=== PATIENT | female | born 1970 | race Two or more races ===

== ENCOUNTER 2016-10-11 11:06 | Emergency (ER) | payer OTHER ==
[2016-10-11 14:00] VITALS: BP 139/93
--- NOTE | 2016-10-11 14:18 | RAD ---
INDICATION: Progressive LEFT mid back and flank pain. Pain on bending. COMPARISON: May 09, 2004 lumbar spine radiographs. TECHNIQUE: Multidetector CT images were obtained from the lung bases to the ischial tuberosities. Evaluation of the viscera is limited without IV contrast. Multiplanar reformation. REPORT: Unremarkable visualized inferior thorax. The unenhanced liver, gallbladder, pancreas, and spleen are unremarkable. Negative for CT abnormality of the unopacified upper GI, small bowel, appendix visualized along the RIGHT pelvic sidewall, or colon. Physiologic small volume of free fluid in the cul-de-sac. Negative for free air or hernias. Normal adrenal glands. The RIGHT kidney is mildly smaller than the LEFT measuring 9.7 cm in length compared with 10.8 cm for the LEFT. No conspicuous stones, hydronephrosis, or focal renal lesions. Negative for perinephric stranding. Negative for abnormality along the course of the nondilated ureters. Unremarkable partially distended urinary bladder. Unremarkable anteverted rightward deviated uterus and bilateral adnexal regions. Negative for lymphadenopathy. Normal diameter abdominal aorta and iliac arteries. Physiologic distention of the IVC. Negative for suspicious focal osseous lesions or fractures. Normal lumbar sacral spine alignment. No CT evidence for significant degenerative spondylosis or spinal stenosis. IMPRESSION: No acute abdominal pelvic pathologic process evident.
--- NOTE | 2016-10-11 14:31 | UC ---
Santhosh Mcfarlane Salem, scribed for Tracy Anderson MD on 10/11/16 at 1302 . Back Pain HPI - HPI Summary HPI Summary: Patient is a 45 y/o F who presents to the with pain in left flank pain since last night. She states that pain is aggravated with bending, siting, and with applied pressure. Pt denies any recent injuries or abd pain, nausea, right flank , and urinary symptoms (such as frequency or discoloration). She also denies any hx of similar pain. + hx autoimmune d/o. She states that she had a spinal tap done 2 weeks ago with blood patch. Pt has been tapering off of Prednisone since April 2015. She also reports taking Methotrexate (weekly), and supplements including Gabapentin, Magnesium, curcurmen, Vit B2. Pt was not able to see PCP (dr Anton) today, but was sent here from her PCPs office. Most recent PO intake around 0945 today. Denies hx of pancreatitis. LNMP was 2 weeks ago. Patients medication reviewed this visit. She reported to RN that she had a spinal tap(out of town) done 2 weeks ago with blood patch. - History of Current Complaint Chief Complaint: UCBackPain Stated Complaint: PAIN UNDER RIB AREA Time Seen by Provider: 10/11/16 13:04 Hx Obtained From: Patient Hx Last Menstrual Period: 09/27/16 Onset/Duration: Gradual Onset, Lasting Days, Still Present Timing: Constant Severity Initially: Moderate Severity Currently: Moderate Pain Intensity: 8 Pain Scale Used: 0-10 Numeric Back Pain: Is Discrete @ - Left flank. Character: Sharp Aggravating: Bending - Sitting. Alleviating: Position - Standing. Associated Signs And Symptoms: Positive: Flank Pain - Left. - Allergies/Home Medications Allergies/Adverse Reactions: Allergies Allergy/AdvReac Type Severity Reaction Status Date / Time No Known Allergies Allergy Verified 10/11/16 11:40 Home Medications: Home Medications Gabapentin CAP(*) [Neurontin 100 mg CAP(*)] 200 mg PO BEDTIME 10/11/16 [History Confirmed 10/11/16] PMH/Surg Hx/FS Hx/Imm Hx Previously Healthy: Yes - Surgical History Surgical History: Yes Surgery Procedure, Year, and Place: BENIGN LUMP (FATTY TUMOR) REMOVAL FROM BACK; - Family History Known Family History: Negative: Cardiac Disease, Hypertension, Diabetes - Social History Alcohol Use: None Substance Use Type: None Smoking Status (MU): Former Smoker Type: Cigarettes Have You Smoked in the Last Year: No - Immunization History Most Recent Influenza Vaccination: 2016 Most Recent Tetanus Shot: approx 5 years ago Most Recent Pneumonia Vaccination: never Review of Systems Constitutional: Negative Skin: Negative Eyes: Negative ENT: Negative Respiratory: Negative Cardiovascular: Negative Musculoskeletal: Other: - See HPI. All Other Systems Reviewed And Are Negative: Yes Physical Exam Triage Information Reviewed: Yes Appearance: Well-Nourished Vital Signs: Initial Vital Signs Temp 98.7 F 10/11/16 11:41 Pulse 80 10/11/16 11:41 Resp 16 10/11/16 11:41 BP 129/89 10/11/16 11:41 Pulse Ox 100 10/11/16 11:41 Vital Signs Reviewed: Yes Eye Exam: Normal ENT Exam: Normal Neck exam: Normal Neck: Positive: Supple Respiratory Exam: Normal - no dyspnea, no tachypnea, normal respiratory rate Respiratory: Positive: Chest non-tender, Lungs clear, Normal breath sounds, No respiratory distress, No accessory muscle use Cardiovascular Exam: Normal - Heart rate regular, good general skin color, good capillary refil Cardiovascular: Positive: RRR, No Murmur, Pulses Normal, Brisk Capillary Refill Abdominal Exam: Normal Abdomen Description: Positive: Nontender, No Organomegaly, Soft, CVA Tenderness (L) Bowel Sounds: Positive: Present Musculoskeletal Exam: Normal Musculoskeletal: Positive: Strength Intact Neurological Exam: Normal - nonfocal, grossly intact Psychological Exam: Normal - conversing easily and appropriately Skin Exam: Normal - no visible or reported rash Diagnostics - Laboratory Diagnostic Studies Completed/Ordered: POC Ur test: negative. CT of ABD/PELVIS: IMPRESSION: No acute abdominal pelvic pathologic process evident. Back Pain Course/Dx - Course Course Of Treatment: Declines analgesics. Prefers standing up to sitting down ( pain). Reviewed urine dip w/ pt. CT a/p w/o cont ordered. 14:30 s/o Dr. Escobedo. - Differential Dx/Diagnosis Provider Diagnoses: Acute left flank pain Discharge - Discharge Plan Condition: Stable Disposition: HOME Referrals: Papito Anton MD [Primary Care Provider] - Additional Instructions: Please follow up with your primary care provider in 1-2 weeks. Seek medical attention for worse or new problems in the meantime. The documentation as recorded by the Santhosh ferrer Salem accurately reflects the service I personally performed and the decisions made by me, Tracy Anderson MD.
== END 2016-10-11 15:10 | disposition home or self-care (01) ==
LOC: UCEAST 11:06
DX: R10.9 Unspecified abdominal pain (principal); Z87.891 Personal history of nicotine dependence
CPT/HCPCS: 74176; 81003; 84702; 99212; G0463

== ENCOUNTER 2016-11-13 09:50 | Emergency (ER) | payer OTHER ==
[2016-11-13 10:03] VITALS: BP 135/89
[2016-11-13] MEDS ORDERED: Ketorolac INJ* 30 MG/ML 1 ML VIAL IV ONE (10:47)
--- NOTE | 2016-11-13 11:36 | RAD ---
INDICATION: Excruciating neck pain with radiation to the LEFT (C8) shoulder and down the mid back. Decreased range of motion. COMPARISON: June 22, 2015 MRI. TECHNIQUE: Multidetector CT images foramen magnum to lung apices without contrast. Multiplanar reformation. REPORT: Slight kyphosis of the cervical spine which may be positional. Negative for facet subluxation at any level. Negative for cervical vertebral body or posterior element fracture. Negative for paravertebral hematoma. At C5-C6 there is mild posterior central vertebral endplate osteophytosis and posterior central to LEFT paracentral focal disc protrusion with resulting mild impression on the LEFT anterior margin of the thecal sac without gross interval change compared with the 1999 MRI. At C6-C7 there is a small RIGHT paracentral posterior disc protrusion with only slight impression on the RIGHT anterior margin of the thecal sac without significant interval change. Pertinent negative is absence of conspicuous degenerative spondylosis or facet joint osteoarthritis at the C7-T1 level to correlate with the patient's C8 nerve distribution symptoms. IMPRESSION: Mild degenerative spondylosis at C5-C6 and C6-C7 without gross interval change compared with the June 22, 2015 exam. If clinically indicated assessment of the degenerative spondylosis and associated small disc protrusions would be most accurate with MRI.
[2016-11-13 12:29] LABS: Hematocrit 39 % (35-47); Hemoglobin 12.8 g/dl (12.0-16.0); Mean Corpuscular HGB Conc 33 g/dl (31-36); Mean Corpuscular Hemoglobin 32 pg (27-31); Mean Corpuscular Volume 98 fL (80-97); Mean Platelet Volume 9 um3 (7.4-10.4); Red Blood Count 3.96 10^6/ul (4.0-5.4); Red Cell Distribution Width 15 % (10.5-15); White Blood Count 4.7 10^3/ul (3.5-10.8)
[2016-11-13 13:57] LABS: Total Bilirubin 0.7 mg/dL (0.2-1.0)
--- NOTE | 2016-11-13 14:45 | RAD ---
Indication: Neck pain. 5 views of the cervical spine including flexion and extension views of the cervical spine and lateral projections were obtained. The vertebral bodies appear normal in height. There is straightening of the normal lordosis. There is no spondylolysis or retrolisthesis on flexion or extension. Disc spaces all well-preserved. Intervertebral foramen appear patent. IMPRESSION: Straightening of the normal lordosis without evidence of listhesis on flexion or extension. Otherwise unremarkable cervical spine series.
[2016-11-13 14:51] LABS: Albumin 3.8 g/dL (3.2-5.2); BUN/Creatinine Ratio 16.4 (8-20); Calcium 9.2 mg/dL (8.6-10.3); EGFR African American 123.5 (>60); EGFR Non-African American 96.1 (>60); Total Protein 6.8 g/dL (6.4-8.9)
--- NOTE | 2016-11-13 14:57 | ED ---
Alycia Mcfarlane Edward, scribed for Kaye Theodore MD on 11/13/16 at 1037 . Neck Pain - HPI Summary HPI Summary: 45 y/o female presents to ED c/o constant neck pain starting one week ago. The pain is located more on the L side of the back of the neck. The pain is alleviated when she is still, rated at a 7/10. When she moves, the pain jumps to a 10+/10. She states some numbness down the LUE when she lies down for a long time. PMHx C-spine disease, migraines, lupus and rheumatoid arthritis. - History of Current Complaint Chief Complaint: EDNeckComplaint Stated Complaint: LT SHOULDER PAIN Time Seen by Provider: 11/13/16 10:27 Hx Obtained From: Patient Hx Last Menstrual Period: 09/27/16 Timing: Constant, Lasting Days - six days ago Severity Initially: Severe Severity Currently: Severe Pain Intensity: 10 Pain Scale Used: 0-10 Numeric Location: Discrete At: - Back of the neck Aggravating Factors: Movement Alleviating Factors: Other: - Staying still - Allergies/Home Medications Allergies/Adverse Reactions: Allergies Allergy/AdvReac Type Severity Reaction Status Date / Time No Known Allergies Allergy Verified 10/11/16 11:40 PMH/Surg Hx/FS Hx/Imm Hx Previously Healthy: No Endocrine/Hematology History: Denies: Hx Diabetes, Hx Thyroid Disease Cardiovascular History: Denies: Hx Hypertension, Hx Pacemaker/ICD Respiratory History: Denies: Hx Asthma, Hx Chronic Obstructive Pulmonary Disease (COPD) GI History: Denies: Hx Ulcer History: Denies: Hx Renal Disease Musculoskeletal History: Reports: Hx Rheumatoid Arthritis, Other Musculoskeletal History - Rhuematoid Arthritis Denies: Hx Scoliosis Sensory History: Denies: Hx Hearing Aid Neurological History: Reports: Hx Headaches, Hx Migraine, Other Neuro Impairments/Disorders - some cognitive problems recently Psychiatric History: Denies: Hx Panic Disorder - Cancer History Hx Chemotherapy: No Hx Radiation Therapy: No - Surgical History Surgery Procedure, Year, and Place: BENIGN LUMP (FATTY TUMOR) REMOVAL FROM BACK; - Immunization History Date of Tetanus Vaccine: Up to date Date of Influenza Vaccine: Fall 2011 Infectious Disease History: Reports: Hx Hepatitis - hep Denies: Hx Clostridium Difficile, Hx Human Immunodeficiency Virus (HIV), Hx of Known/Suspected MRSA, Hx Shingles, Hx Tuberculosis, History Other Infectious Disease, Traveled Outside the [place] in Last 30 Days - Family History Known Family History: Negative: Cardiac Disease, Hypertension, Diabetes - Social History Occupation: Employed Full-time Lives: With Family Alcohol Use: None Substance Use Type: Reports: None Smoking Status (MU): Former Smoker Type: Cigarettes Have You Smoked in the Last Year: No Review of Systems Constitutional: Negative Eyes: Negative ENT: Negative Cardiovascular: Negative Respiratory: Negative Gastrointestinal: Negative Genitourinary: Negative Positive: Arthralgia - Neck pain Skin: Negative Neurological: Negative Psychological: Normal All Other Systems Reviewed And Are Negative: Yes Physical Exam Triage Information Reviewed: Yes Vital Signs On Initial Exam: Initial Vitals Temp Pulse Resp BP Pulse Ox 98.0 F 63 18 135/89 100 11/13/16 10:00 11/13/16 10:00 11/13/16 10:00 11/13/16 10:00 11/13/16 10:00 Vital Signs Reviewed: Yes Appearance: Positive: Well-Appearing, No Pain Distress Skin: Positive: Warm, Skin Color Reflects Adequate Perfusion, Dry Eyes: Positive: EOMI, LITTLE ENT: Positive: Pharynx normal, TMs normal Neck: Positive: Supple, Tenderness @ - Paraspinal tenderness C5-C7 Respiratory/Lung Sounds: Positive: Clear to Auscultation, Breath Sounds Present. Negative: Rales, Rhonchi, Wheezes Cardiovascular: Positive: RRR, Other - No gallop. Negative: Murmur, Rub Abdomen Description: Positive: Nontender, Soft, Other: - No rebound. Negative: Distended, Guarding Musculoskeletal: Positive: Strength/ROM Intact. Negative: Edema Left, Edema Right Neurological: Positive: Sensory/Motor Intact, Alert, Oriented to Person Place, Time, CN Intact II-III, Other - Normal reflexes Psychiatric: Positive: Affect/Mood Appropriate Diagnostics - Vital Signs Vital Signs Temp Pulse Resp BP Pulse Ox 11/13/16 10:00 98.0 F 63 18 135/89 100 - Laboratory Lab Results: Lab Results 11/13/16 11/13/16 Range/Units 12:15 12:15 WBC 4.7 (3.5-10.8) 10^3/ul RBC 3.96 L (4.0-5.4) 10^6/ul Hgb 12.8 (12.0-16.0) g/dl Hct 39 (35-47) % MCV 98 H (80-97) fL MCH 32 H (27-31) pg MCHC 33 (31-36) g/dl RDW 15 (10.5-15) % Plt Count 210 (150-450) 10^3/ul MPV 9 (7.4-10.4) um3 Neut % (Auto) 72.2 (38-83) % Lymph % (Auto) 20.4 L (25-47) % [place] % (Auto) 5.5 (1-9) % Eos % (Auto) 0.9 (0-6) % Baso % (Auto) 1.0 (0-2) % Absolute Neuts (auto) 3.4 (1.5-7.7) 10^3/ul Absolute Lymphs (auto) 1.0 (1.0-4.8) 10^3/ul Absolute Monos (auto) 0.3 (0-0.8) 10^3/ul Absolute Eos (auto) 0 (0-0.6) 10^3/ul Absolute Basos (auto) 0 (0-0.2) 10^3/ul Absolute Nucleated RBC 0 10^3/ul Nucleated RBC % 0 Sodium 135 (133-145) mmol/L Potassium 4.0 (3.5-5.0) mmol/L Chloride 105 (101-111) mmol/L Carbon Dioxide 20 L (22-32) mmol/L Anion Gap 10 (2-11) mmol/L BUN 11 (6-24) mg/dL Creatinine 0.67 (0.51-0.95) mg/dL Est GFR ( Amer) 123.5 (>60) Est GFR (Non-Af Amer) 96.1 (>60) BUN/Creatinine Ratio 16.4 (8-20) Glucose 62 L (70-100) mg/dL Calcium 9.2 (8.6-10.3) mg/dL Total Bilirubin 0.70 (0.2-1.0) mg/dL AST 39 (13-39) U/L ALT 25 (7-52) U/L Alkaline Phosphatase 19 L (34-104) U/L Total Protein 6.8 (6.4-8.9) g/dL Albumin 3.8 (3.2-5.2) g/dL Globulin 3.0 (2-4) g/dL Albumin/Globulin Ratio 1.3 (1-3) Result Diagrams: 11/13/16 12:15 11/13/16 12:15 Lab Statement: Any lab studies that have been ordered have been reviewed, and results considered in the medical decision making process. - CT C-spine CT CT Interpretation: Positive (See Comments) - Mild degenerative spondylosis at C5 -C6 and C6-C7 without gross interval change compared with the June 22, 2015 exam. If clinically indicated assessment of the degenerative spondylosis and associated small disc protrusions would be most accurate with MRI. CT Interpretation Completed By: Radiologist Neck Course/Dx - Course Course Of Treatment: 45 yo female with known cervical spine disease weaning off of prednisone for an autoimmune disorder with new left sided neck pain for several days, she is awaiting the ok to get an MRI. Her neurological exam here was normal. CT had no acute findings and flexion/extension films were neg - Diagnoses Provider Diagnoses: Neck pain Discharge - Discharge Plan Condition: Stable Disposition: HOME Prescriptions: Hydrocodone-Acetaminophen [[place] 5-325 mg] 1 tab PO Q6HR #12 tab MDD 4 LORazepam TAB(*) [Ativan 1 MG TAB (*)] 1 mg PO BEDTIME PRN #7 tab MDD 1 PRN Reason: Pain Meds/Orders/Equipment: SP CERV COMP/OBL, FLEX, EXT [DX] Location: Determined By Patient The documentation as recorded by the Alycia ferrer Edward accurately reflects the service I personally performed and the decisions made by , Kaye Theodore MD.
== END 2016-11-13 16:31 | disposition home or self-care (01) ==
LOC: ED 09:50
DX: M54.2 Cervicalgia (principal); M54.9 Dorsalgia, unspecified; Z87.891 Personal history of nicotine dependence
CPT/HCPCS: 36415; 72052; 72125; 80053; 85025; 96374; 99284; J1885

== ENCOUNTER 2016-11-15 01:43 | Emergency (ER) | payer OTHER ==
[2016-11-15] MEDS ORDERED: Aspirin Low Dose CHEW TAB* 81 MG PO ONE (02:14)
[2016-11-15 02:24] LABS: Hematocrit 38 % (35-47); Hemoglobin 12.8 g/dl (12.0-16.0); Mean Corpuscular HGB Conc 34 g/dl (31-36); Mean Corpuscular Hemoglobin 33 pg (27-31); Mean Corpuscular Volume 96 fL (80-97); Mean Platelet Volume 9 um3 (7.4-10.4); Red Blood Count 3.91 10^6/ul (4.0-5.4); Red Cell Distribution Width 15 % (10.5-15); White Blood Count 4.5 10^3/ul (3.5-10.8)
[2016-11-15 02:41] LABS: Albumin 4.1 g/dL (3.2-5.2); BUN/Creatinine Ratio 18.4 (8-20); EGFR African American 91.4 (>60); EGFR Non-African American 71.1 (>60); Globulin 2.6 g/dL (2-4); Potassium 3.8 mmol/L (3.5-5.0); Total Bilirubin 0.7 mg/dL (0.2-1.0); Total Protein 6.7 g/dL (6.4-8.9)
--- NOTE | 2016-11-15 04:00 | ED ---
Alycia Mcfarlane Edward, scribed for Valentin Garcia MD on 11/15/16 at 0202 . HPI Chest Pain - HPI Summary HPI Summary: 45 y/o female presents to ED c/o intermittent L sided chest pain since 14 today. The pain is described as a squeezing, tight pain. The pain is aggravated with deep breaths on the exhale. The patient was sitting up in bed when the pain started. Pt was in the ED on 11/13/16 for pain @ " neck and back", and placed on [place] and Flexeril. Neck and back pain still present. Pt denies known cardiac dx, as well as SOB/Diaphoresis/N/V with this episode. - History of Current Complaint Chief Complaint: EDChestPainROMI Hx Obtained From: Patient Onset/Duration: Started Hours Ago - 2 hours ago Timing: Intermittent Current Severity: Severe Pain Intensity: 10 Chest Pain Location: Left Lateral Character: Pressure/Squeezing, Tightness Aggravating Factor(s): Deep Breaths - On exhale Associated Signs and Symptoms: Positive: Chest Pain, Back Pain, Other: - Neck pain - Additional Pertinent History Primary Care Physician: [id number] - Allergy/Home Medications Allergies/Adverse Reactions: Allergies Allergy/AdvReac Type Severity Reaction Status Date / Time No Known Allergies Allergy Verified 11/15/16 08:52 PMH/Surg Hx/FS Hx/Imm Hx Previously Healthy: No Endocrine/Hematology History: Denies: Hx Diabetes, Hx Thyroid Disease Cardiovascular History: Denies: Hx Hypertension, Hx Pacemaker/ICD Respiratory History: Denies: Hx Asthma, Hx Chronic Obstructive Pulmonary Disease (COPD) GI History: Denies: Hx Ulcer History: Denies: Hx Renal Disease Musculoskeletal History: Reports: Hx Rheumatoid Arthritis, Other Musculoskeletal History - Rhuematoid Arthritis Denies: Hx Scoliosis Sensory History: Denies: Hx Hearing Aid Neurological History: Reports: Hx Headaches, Hx Migraine, Other Neuro Impairments/Disorders - some cognitive problems recently Psychiatric History: Denies: Hx Panic Disorder - Cancer History Hx Chemotherapy: No Hx Radiation Therapy: No - Surgical History Surgery Procedure, Year, and Place: BENIGN LUMP (FATTY TUMOR) REMOVAL FROM BACK; - Immunization History Date of Tetanus Vaccine: Up to date Date of Influenza Vaccine: Fall 2011 Infectious Disease History: No Infectious Disease History: Reports: Hx Hepatitis - hep, Traveled Outside the [place] in Last 30 Days - Denies: Hx Clostridium Difficile, Hx Human Immunodeficiency Virus (HIV), Hx of Known/Suspected MRSA, Hx Shingles, Hx Tuberculosis, History Other Infectious Disease - Family History Known Family History: Negative: Cardiac Disease, Hypertension, Diabetes - Social History Occupation: Employed Full-time Lives: With Family Alcohol Use: None Hx Substance Use: No Substance Use Type: Reports: None Hx Tobacco Use: Yes Smoking Status (MU): Former Smoker Type: Cigarettes Have You Smoked in the Last Year: No Review of Systems Constitutional: Negative Eyes: Negative ENT: Negative Positive: Chest Pain Respiratory: Negative Gastrointestinal: Negative Genitourinary: Negative Positive: Arthralgia - Neck pain, Myalgia - Back pain Skin: Negative Neurological: Negative Psychological: Normal All Other Systems Reviewed And Are Negative: Yes Physical Exam Triage Information Reviewed: Yes Vital Signs On Initial Exam: Initial Vitals Temp Pulse Resp BP Pulse Ox 98.3 F 75 16 152/90 100 11/15/16 01:46 11/15/16 01:46 11/15/16 01:46 11/15/16 01:46 11/15/16 01:46 Vital Signs Reviewed: Yes Appearance: Positive: Well-Appearing, No Pain Distress Skin: Positive: Warm Head/Face: Positive: Normal Head/Face Inspection Eyes: Positive: LITTLE ENT: Positive: Hearing grossly normal Neck: Positive: Supple Respiratory/Lung Sounds: Positive: Clear to Auscultation, Breath Sounds Present Cardiovascular: Positive: RRR. Negative: Murmur Abdomen Description: Positive: Nontender, Soft Bowel Sounds: Positive: Present Musculoskeletal: Positive: Strength/ROM Intact Neurological: Positive: Alert, Oriented to Person Place, Time Diagnostics - Vital Signs Vital Signs Temp Pulse Resp BP Pulse Ox 11/15/16 01:46 98.3 F 75 16 152/90 100 - Laboratory Lab Results: Lab Results 11/15/16 11/15/16 11/15/16 Range/Units 02:15 02:15 02:15 WBC 4.5 (3.5-10.8) 10^3/ul RBC 3.91 L (4.0-5.4) 10^6/ul Hgb 12.8 (12.0-16.0) g/dl Hct 38 (35-47) % MCV 96 (80-97) fL MCH 33 H (27-31) pg MCHC 34 (31-36) g/dl RDW 15 (10.5-15) % Plt Count 205 (150-450) 10^3/ul MPV 9 (7.4-10.4) um3 Neut % (Auto) 46.0 (38-83) % Lymph % (Auto) 45.2 (25-47) % [place] % (Auto) 5.7 (1-9) % Eos % (Auto) 2.1 (0-6) % Baso % (Auto) 1.0 (0-2) % Absolute Neuts (auto) 2.0 (1.5-7.7) 10^3/ul Absolute Lymphs (auto) 2.0 (1.0-4.8) 10^3/ul Absolute Monos (auto) 0.3 (0-0.8) 10^3/ul Absolute Eos (auto) 0.1 (0-0.6) 10^3/ul Absolute Basos (auto) 0 (0-0.2) 10^3/ul Absolute Nucleated RBC 0 10^3/ul Nucleated RBC % 0.1 D-Dimer, Quantitative (Less Than 230) ng/mL Sodium 136 (133-145) mmol/L Potassium 3.8 (3.5-5.0) mmol/L Chloride 104 (101-111) mmol/L Carbon Dioxide 28 (22-32) mmol/L Anion Gap 4 (2-11) mmol/L BUN 16 (6-24) mg/dL Creatinine 0.87 (0.51-0.95) mg/dL Est GFR ( Amer) 91.4 (>60) Est GFR (Non-Af Amer) 71.1 (>60) BUN/Creatinine Ratio 18.4 (8-20) Glucose 83 (70-100) mg/dL Lactic Acid 0.7 (0.5-2.0) mmol/L Calcium 9.0 (8.6-10.3) mg/dL Magnesium 2.0 (1.9-2.7) mg/dL Total Bilirubin 0.70 (0.2-1.0) mg/dL AST 28 (13-39) U/L ALT 25 (7-52) U/L Alkaline Phosphatase 36 (34-104) U/L Total Creatine Kinase 60 (10-223) U/L Troponin I 0.00 (<0.04) ng/mL Total Protein 6.7 (6.4-8.9) g/dL Albumin 4.1 (3.2-5.2) g/dL Globulin 2.6 (2-4) g/dL Albumin/Globulin Ratio 1.6 (1-3) 11/15/16 Range/Units 02:15 WBC (3.5-10.8) 10^3/ul RBC (4.0-5.4) 10^6/ul Hgb (12.0-16.0) g/dl Hct (35-47) % MCV (80-97) fL MCH (27-31) pg MCHC (31-36) g/dl RDW (10.5-15) % Plt Count (150-450) 10^3/ul MPV (7.4-10.4) um3 Neut % (Auto) (38-83) % Lymph % (Auto) (25-47) % [place] % (Auto) (1-9) % Eos % (Auto) (0-6) % Baso % (Auto) (0-2) % Absolute Neuts (auto) (1.5-7.7) 10^3/ul Absolute Lymphs (auto) (1.0-4.8) 10^3/ul Absolute Monos (auto) (0-0.8) 10^3/ul Absolute Eos (auto) (0-0.6) 10^3/ul Absolute Basos (auto) (0-0.2) 10^3/ul Absolute Nucleated RBC 10^3/ul Nucleated RBC % D-Dimer, Quantitative < 200 (Less Than 230) ng/mL Sodium (133-145) mmol/L Potassium (3.5-5.0) mmol/L Chloride (101-111) mmol/L Carbon Dioxide (22-32) mmol/L Anion Gap (2-11) mmol/L BUN (6-24) mg/dL Creatinine (0.51-0.95) mg/dL Est GFR ( Amer) (>60) Est GFR (Non-Af Amer) (>60) BUN/Creatinine Ratio (8-20) Glucose (70-100) mg/dL Lactic Acid (0.5-2.0) mmol/L Calcium (8.6-10.3) mg/dL Magnesium (1.9-2.7) mg/dL Total Bilirubin (0.2-1.0) mg/dL AST (13-39) U/L ALT (7-52) U/L Alkaline Phosphatase (34-104) U/L Total Creatine Kinase (10-223) U/L Troponin I (<0.04) ng/mL Total Protein (6.4-8.9) g/dL Albumin (3.2-5.2) g/dL Globulin (2-4) g/dL Albumin/Globulin Ratio (1-3) Result Diagrams: 11/15/16 02:15 11/15/16 02:15 Lab Statement: Any lab studies that have been ordered have been reviewed, and results considered in the medical decision making process. - Radiology CXR Xray Interpretation: No Acute Changes - NAD Radiology Interpretation Completed By: ED Physician - EKG 1 Cardiac Rate: NL EKG Rhythm: Sinus Rhythm - @ 73 bpm EKG Interpretation: 01:47 Re-Evaluation - Re-Evaluation First Eval Comment: pt remains pain free, results d/w pt Chest Pain Course/Dx - Course Assessment/Plan: 45 y/o female presents to ED c/o intermittent L sided chest pain since 14 today. The pain is described as a squeezing, tight pain. The pain is aggravated with deep breaths on the exhale. The patient was sitting up in bed when the pain started. Pt was in the ED on 11/13/16 for pain @ " neck and back", and placed on [place] and Flexeril. Neck and back pain still present. Pt denies known cardiac dx, as well as SOB/Diaphoresis/N/V with this episode. EKG @ 01:47 shows NSR @ 73 bpm. CXR negative for acute pathology. Pt will be d/c home with f/u with PCP. - Diagnoses Provider Diagnoses: Chest pain Discharge - Discharge Plan Condition: Stable Disposition: HOME Patient Education Materials: Chest Pain (ED) Referrals: Papito Anton MD [Primary Care Provider] - 3 Days (please f/u in 2-3 days) The documentation as recorded by the Alycia ferrer Edward accurately reflects the service I personally performed and the decisions made by , Valentin Garcia MD.
[2016-11-15 06:46] VITALS: BP 132/82
--- NOTE | 2016-11-15 08:07 | RAD ---
INDICATION: Chest pain. COMPARISON: Comparison is made with a prior study from February 08, 2013. TECHNIQUE: Dual-energy PA and lateral views of the chest were obtained. FINDINGS: The heart is within normal limits in size. Mediastinal and hilar contours appear within normal limits. The lungs are clear. No pleural effusion or pneumothorax is seen. IMPRESSION: NO EVIDENCE FOR ACTIVE CARDIOPULMONARY DISEASE.
== END 2016-11-15 06:47 | disposition home or self-care (01) ==
LOC: ED 01:43
DX: R07.89 Other chest pain (principal); M54.2 Cervicalgia; M54.9 Dorsalgia, unspecified; Z32.02 Encounter for pregnancy test, result negative; M06.9 Rheumatoid arthritis, unspecified; G43.909 Migraine, unspecified, not intractable, without status migrainosus; Z87.891 Personal history of nicotine dependence
CPT/HCPCS: 36415; 71020; 80053; 82550; 83605; 83735; 84484; 84702; 85025; 85379; 93005; 99284; A9270-GY

== ENCOUNTER 2019-04-01 09:18 | Emergency (ER) | payer OTHER ==
[2019-04-01 10:55] LABS: ABS Lymphocytes 0.4 10^3/ul (1.0-4.8); ABS Monocytes 0.3 10^3/ul (0-0.8); ABS Neutrophils 3.5 10^3/ul (1.5-7.7); Eosinophil % 1.1 %; Hematocrit 38 % (35-47); Hemoglobin 12.9 g/dL (12.0-16.0); Lymphocyte % 9.9 %; Mean Corpuscular HGB Conc 34 g/dL (31-36); Mean Corpuscular Hemoglobin 31 pg (27-31); Mean Corpuscular Volume 90 fL (80-97); Mean Platelet Volume 8.4 fL (7.4-10.4); Platelet Count 190 10^3/uL (150-450); Red Cell Distribution Width 13 % (10-15); White Blood Count 4.3 10^3/uL (3.5-10.8)
[2019-04-01 11:05] LABS: Albumin/Globulin Ratio 1.3 (1-3); BUN/Creatinine Ratio 12.5 (8-20); C Reactive Protein 9.11 mg/L (<8.01); EGFR African American 93.4 (>60); EGFR Non-African American 77.2 (>60); Globulin 3.2 g/dL (2-4); Total Bilirubin 0.8 mg/dL (0.2-1.0); Total Protein 7.2 g/dL (6.4-8.9)
--- NOTE | 2019-04-01 11:36 | ED ---
Complex/Multi-Sys Presentation - HPI Summary HPI Summary: The patient is a 48 y/o F presenting to [facility] with a chief complaint of sudden onset feeling of nausea and weakness with the development of flu-like symptoms onset at 1830 last night. She reports that she was out shopping last night when she suddenly felt nauseated and generally weak. Throughout the night and into this morning, she has continued to feel unwell with the development of arthralgia all over, photophobia, low-grade fever at 99F, mild SOB, diffuse abdominal cramping, headache, chills, diaphoresis, and palpitations. She denies any cough, CP, dysuria, or diarrhea. She notes that she has Lupus, and she also recently returned from a one-week trip to [place] on 03/30/19. She is not on prophylaxis for malaria, and she did not get a flu-shot this year. Currently, her symptoms are rated 9/10 in severity. She has not taken any medications LITHOPONE CHARGER for treatment of her symptoms. PMHx: Lupus, chronic migraines. Former smoker, no EtOH, no substance use. Medications reviewed. Allergies noted. - History Of Current Complaint Chief Complaint: EDGeneral Time Seen by Provider: 04/01/19 11:25 Hx Obtained From: Patient Onset/Duration: Sudden Onset, Lasting Hours - since 1830 last night, Still Present Timing: Constant Severity Currently: Moderate Severity Initially: Severe Aggravating Factor(s): lights Alleviating Factor(s): nothing Associated Signs And Symptoms: Positive: Weakness, Headache, SOB, Palpitations, Nausea, Abdominal Pain, Dysuria, Fever, Diaphoresis, Other - photophobia, arthralgia. Negative: Cough, Chest Pain, Vomiting, Diarrhea - Allergies/Home Medications Allergies/Adverse Reactions: Allergies Allergy/AdvReac Type Severity Reaction Status Date / Time No Known Allergies Allergy Verified 04/01/19 09:27 Home Medications: Home Medications Abatacept [Orencia Clickjet] 125 mg SUBCUT WEEKLY 04/01/19 [History Confirmed ] Magnesium Oxide TAB* [MagOx 400 TAB*] 400 mg PO DAILY 04/01/19 [History Confirmed 04/01/19] Riboflavin (B2) (NF) [Vitamin B-2 (NF)] 100 mg PO DAILY 04/01/19 [History Confirmed 12/17/19] Ubidecarenone [Coq-10] 30 mg PO DAILY 04/01/19 [History Confirmed 04/01/19] PMH/Surg Hx/FS Hx/Imm Hx Endocrine/Hematology History: Reports: Hx Systemic Lupus Erythematosus Denies: Hx Diabetes, Hx Thyroid Disease Cardiovascular History: Denies: Hx Hypertension, Hx Pacemaker/ICD Respiratory History: Denies: Hx Asthma, Hx Chronic Obstructive Pulmonary Disease (COPD) GI History: Denies: Hx Ulcer History: Denies: Hx Renal Disease Musculoskeletal History: Reports: Hx Rheumatoid Arthritis, Other Musculoskeletal History - Rhuematoid Arthritis Denies: Hx Scoliosis Sensory History: Denies: Hx Hearing Aid Neurological History: Reports: Hx Headaches, Hx Migraine, Other Neuro Impairments/Disorders - some cognitive problems recently Psychiatric History: Denies: Hx Panic Disorder - Cancer History Hx Chemotherapy: No Hx Radiation Therapy: No - Surgical History Surgical History: Yes Surgery Procedure, Year, and Place: BENIGN LUMP (FATTY TUMOR) REMOVAL FROM BACK; - Immunization History Date of Tetanus Vaccine: Up to date Date of Influenza Vaccine: Fall 2011 Infectious Disease History: Yes Infectious Disease History: Reports: Hx Hepatitis - hep, Traveled Outside the [place] in Last 30 Days Denies: Hx Clostridium Difficile, Hx Human Immunodeficiency Virus (HIV), Hx of Known/Suspected MRSA, Hx Shingles, Hx Tuberculosis, History Other Infectious Disease - Family History Known Family History: Negative: Cardiac Disease, Hypertension, Diabetes - Social History Alcohol Use: None Hx Substance Use: No Substance Use Type: Reports: None Hx Tobacco Use: Yes Smoking Status (MU): Former Smoker Type: Cigarettes Have You Smoked in the Last Year: No Review of Systems Positive: Fever - low-grade 99F, Chills, Skin Diaphoresis Positive: Photophobia Positive: Palpitations. Negative: Chest Pain Positive: Shortness Of Breath. Negative: Cough Positive: Abdominal Pain - diffuse cramping, Nausea. Negative: Vomiting, Diarrhea Negative: dysuria Positive: Arthralgia Positive: Headache, Weakness - generalized All Other Systems Reviewed And Are Negative: Yes Physical Exam - Summary Physical Exam Summary: Constitutional: Well-developed, Well-nourished, Alert. Lying uncomfortably in the bed with eyes closed, (-) Distressed Skin: Warm, Dry HENT: Normocephalic; Atraumatic Eyes: Conjunctiva normal, Quinces eyes in pain with shining light Neck: Musculoskeletal ROM normal neck. (-) JVD, (-) Stridor, (-) Tracheal deviation Cardio: Rhythm regular, rate normal, Heart sounds normal; Intact distal pulses; Radial pulses are 2+ and symmetric. (-) Murmur Pulmonary/Chest wall: Effort normal. (-) Respiratory distress, (-) Wheezes, (-) Rales Abd: Soft, (+) Mild diffuse tenderness, (-) Distension, (-) Guarding, (-) Rebound Musculoskeletal: (-) Edema Lymph: (-) Cervical adenopathy Neuro: Alert, Oriented x3, Strength normal, Cranial nerves II-XII are grossly intact. (-) Dysmetria, (-) Nystagmus, (-) Ataxia by finger to nose testing, (-) Sensory deficit Psych: Mood and affect Normal Triage Information Reviewed: Yes Vital Signs On Initial Exam: Initial Vitals Temp Pulse Resp BP Pulse Ox 99.2 F 114 17 147/104 100 04/01/19 09:21 04/01/19 09:21 04/01/19 09:21 04/01/19 09:21 04/01/19 09:21 Vital Signs Reviewed: Yes Procedures - Sedation Patient Received Moderate/Deep Sedation with Procedure: No Diagnostics - Vital Signs Vital Signs Temp Pulse Resp BP Pulse Ox 04/01/19 09:21 99.2 F 114 17 147/104 100 - Laboratory Lab Results: Lab Results 04/01/19 04/01/19 Range/Units 10:28 10:28 WBC 4.3 (3.5-10.8) 10^3/uL RBC 4.20 (3.70-4.87) 10^6 /uL Hgb 12.9 (12.0-16.0) g/dL Hct 38 (35-47) % MCV 90 (80-97) fL MCH 31 (27-31) pg MCHC 34 (31-36) g/dL RDW 13 (10-15) % Plt Count 190 (150-450) 10^3/uL MPV 8.4 (7.4-10.4) fL Neut % (Auto) 82.0 % Lymph % (Auto) 9.9 % [place] % (Auto) 6.8 % Eos % (Auto) 1.1 % Baso % (Auto) 0.2 % Absolute Neuts (auto) 3.5 (1.5-7.7) 10^3/ul Absolute Lymphs (auto) 0.4 L (1.0-4.8) 10^3/ul Absolute Monos (auto) 0.3 (0-0.8) 10^3/ul Absolute Eos (auto) 0.0 (0-0.6) 10^3/ul Absolute Basos (auto) 0.0 (0-0.2) 10^3/ul Absolute Nucleated RBC 0.0 10^3/ul Nucleated RBC % 0.0 Sodium 135 (135-145) mmol/L Potassium 4.0 (3.5-5.0) mmol/L Chloride 105 (101-111) mmol/L Carbon Dioxide 25 (22-32) mmol/L Anion Gap 5 (2-11) mmol/L BUN 10 (6-24) mg/dL Creatinine 0.80 (0.51-0.95) mg/dL Est GFR ( Amer) 93.4 (>60) Est GFR (Non-Af Amer) 77.2 (>60) BUN/Creatinine Ratio 12.5 (8-20) Glucose 102 H (70-100) mg/dL Calcium 9.0 (8.6-10.3) mg/dL Total Bilirubin 0.80 (0.2-1.0) mg/dL AST 18 (13-39) U/L ALT 17 (7-52) U/L Alkaline Phosphatase 49 (34-104) U/L C-Reactive Protein 9.11 H (<8.01) mg/L Total Protein 7.2 (6.4-8.9) g/dL Albumin 4.0 (3.2-5.2) g/dL Globulin 3.2 (2-4) g/dL Albumin/Globulin Ratio 1.3 (1-3) Result Diagrams: 04/01/19 10:28 04/01/19 10:28 Lab Statement: Any lab studies that have been ordered have been reviewed, and results considered in the medical decision making process. - Radiology CXR Radiology Interpretation Completed By: Radiologist Summary of Radiographic Findings: Impression: No radiographic evidence of acute cardiopulmonary disease. ED physician has reviewed this imaging report. Re-Evaluation - Re-Evaluation First Eval Re-Evaluation Time: 12:45 Change: Improved Comment: Headache is now 2/10 improved from 12/24 Second Eval Re-Evaluation Time: 13:50 Comment: We discussed all results thus far and plan for discharge. Complex Multi-Symp Course/Dx Course Of Treatment: Patient is here with body aches, chills in the setting of lupus on immunosuppressive medication. Patient did just return from a week in [facility] where she did not take any malaria prophylaxis. Patient's had no fever documented including here. Patient does have her typical migraine. Patient was given a migraine cocktail which improved her headache vastly. Patient had a CBC which showed no leukocytosis. Patient had a normal CRP. Patient had negative influenza swab. Patient negative chest x-ray. Patient is likely suffering from a viral syndrome but a malaria smear was sent off with no results at the time of discharge. - Diagnoses Provider Diagnoses: Viral syndrome, Headache Discharge ED - Sign-Out/Discharge Documenting (check all that apply): Patient Departure - Patient will be discharged home. - Discharge Plan Condition: Stable Disposition: HOME Patient Education Materials: Acute Headache (DC), Viral Syndrome (ED) Referrals: Papito Anton MD [Primary Care Provider] - [address] [facility] [Outside] - 3 Days Additional Instructions: We will call you if your malaria screen comes up positive. Please return to the emergency department for any worsening symptoms including chest pain, trouble breathing, vomiting, worsening headache, or numbness on one side of your body. Stay hydrated with Pedialyte.Take Tylenol or Motrin for pain. - Billing Disposition and Condition Condition: STABLE Disposition: Home - Attestation Statements Document Initiated by Hanna: Yes Documenting Scribe: Ghazala Mchugh Provider For Whom Hanna is Documenting (Include Credential): Dr. Vahid Alejandro MD Scribe Attestation: IGhazala, scribed for Dr. Vahid Alejandro MD on 04/01/19 at 2024. Scribe Documentation Reviewed: Yes Provider Attestation: The documentation as recorded by the Ghazala ferrer accurately reflects the service I personally performed and the decisions made by me, Dr. Vahid Alejandro MD Status of Scribmatias Document: Viewed
[2019-04-01] MEDS ORDERED: diPHENhydraMINE IV* 50 MG/ML 1 ml VIAL (BENADRYL) IV ONE (11:37)
[2019-04-01] MEDS ORDERED: Ketorolac INJ* 30 MG/ML 1 ML VIAL IV ONE (11:37)
[2019-04-01] MEDS ORDERED: NS 0.9% 1000 ML** 1,000 ML IV ONE (11:37)
[2019-04-01] MEDS ORDERED: PROCHLORPERAZINE INJ 5 MG/ML 2 ML VIAL IV ONE (11:38)
[2019-04-01 12:21] LABS: Influenza A Molecular NEGATIVE (Negative); Influenza B Molecular NEGATIVE (Negative)
[2019-04-01 13:53] VITALS: BP 133/86
[2019-04-01 14:58] LABS: RBC Parasite Smear No Parasites Seen (No Parasite)
== END 2019-04-01 13:52 | disposition home or self-care (01) ==
LOC: ED 09:18
DX: B34.9 Viral infection, unspecified (principal); R53.1 Weakness; R51 Headache; R06.02 Shortness of breath; R00.2 Palpitations; Z87.891 Personal history of nicotine dependence; R10.9 Unspecified abdominal pain; Z79.899 Other long term (current) drug therapy
CPT/HCPCS: 36415; 71046; 80053; 85025; 86140; 87015; 87207; 96361; 96374; 96375; 99283; J0780; J1200; J1885